=== PATIENT | female | born 1990 | race African-American/Black ===

== ENCOUNTER 2018-03-29 10:01 | Day surgery (SDC) | payer OTHER ==
[2018-03-24 10:26] VITALS: BMI 40.3
--- NOTE | 2018-03-24 13:52 | HP ---
Admitting History and Physical - Primary Care Physician PCP: Kalee Pelayo - Admission Chief Complaint: Left intraductal papilloma with nipple discharge History of Present Illness: 27 yo female presents with complaint of bilateral nipple discharge with some occasional breast pain. An US showed a left retroareolar dilated duct measuring 1.7 cm. Left US core bx was c/w intraductal papilloma. Patient is now presenting for a left breast WE with NL. History Source: Patient Limitations to Obtaining History: No Limitations - Past Medical History ...LMP: 03/16/18 - Smoking History Smoking history: Current some day smoker Have you smoked in the past 12 months: Yes Aproximately how many cigarettes per day: 0 - Alcohol/Substance Use Hx Alcohol Use: Yes (SOCIAL) Home Medications - Allergies Allergies/Adverse Reactions: Allergies Allergy/AdvReac Type Severity Reaction Status Date / Time No Known Drug Allergies Allergy Verified 03/24/18 10:08 - Home Medications Home Medications: Ambulatory Orders Biotin 2,500 mcg PO DAILY 03/24/18 Family Disease History - Family Disease History Family Disease History: CA: Grandparent (paternal GM-breast cancer) Review of Systems - Review of Systems Musculoskeletal: reports: Back Pain Physical Examination Constitutional: Yes: Well Nourished Cardiovascular: Yes: WNL Respiratory: Yes: WNL Breast(s): Yes: Other (No suspicious masses or adenopathy noted bilaterally. Non-bloody yellow thick nipple discharge was noted.) Problem List - Problems (1) Nipple discharge in female Code(s): N64.52 - NIPPLE DISCHARGE (2) Intraductal papilloma of left breast Code(s): D24.2 - BENIGN NEOPLASM OF LEFT BREAST Assessment/Plan Plan: WE of left breast with NL
[2018-03-29] MEDS ORDERED: MIDAZOLAM HCL 2 MG/2 ML SINGLE DOSE VIAL ONE (14:26)
[2018-03-29] MEDS ORDERED: SUCCINYLCHOLINE CHLORIDE 200 MG/10 ML VIAL ONE (14:26)
[2018-03-29] MEDS ORDERED: ONDANSETRON 4 MG/2 ML VIAL ONE (14:26)
[2018-03-29] MEDS ORDERED: PROPOFOL 20 ML ONE ×3 (14:26→15:42)
[2018-03-29] MEDS ORDERED: fentaNYL CITRATE 250 MCG/5 ML VIAL ONE (14:26)
[2018-03-29] MEDS ORDERED: DEXAMETHASONE SOD PHOSPHATE 4 MG/1 ML VIAL ONE (14:26)
[2018-03-29] MEDS ORDERED: ROCURONIUM BROMIDE 50 MG/5 ML VIAL ONE (14:26)
[2018-03-29] MEDS ORDERED: ONDANSETRON 4 MG/2 ML VIAL IVPUSH PRN (14:37)
[2018-03-29] MEDS ORDERED: KETOROLAC TROMETHAMINE 30 MG/1 ML VIAL IVPUSH PRN (14:37)
[2018-03-29] MEDS ORDERED: DEXTROSE 5%-0.45% SALINE 1,000 ML IV SCH (14:45)
[2018-03-29] MEDS ORDERED: LIDOCAINE HCL 1% PRESERVATIVE FREE - 30ML VIAL ONE (14:54)
[2018-03-29] MEDS ORDERED: HYDROmorphone HCL/PF 1 MG/ML AMP ONE (15:22)
[2018-03-29] MEDS ORDERED: BUPIVACAINE HCL/PF 0.25% (2.5MG/ML) 10 ML VIAL IJ ONE (15:26)
[2018-03-29] MEDS ORDERED: BUPIVACAINE HCL/PF 2.5 MG/ML - 30 ML VIAL IJ ONE (15:35)
[2018-03-29] MEDS ORDERED: GUM MASTIC/STORAX/MSAL/ALCOHOL 1 DRP DROPSBTL MC ONE (15:42)
[2018-03-29] MEDS ORDERED: oxyCODONE HCL 5 MG TABLET PO PRN (15:49)
[2018-03-29] MEDS ORDERED: LACTATED RINGERS SOLUTION 1,000 ML IV SCH (16:00)
[2018-03-29 17:19] VITALS: TEMP 98.4
[2018-03-29 17:41] VITALS: BP 113/75; PULSE 85
--- NOTE | 2018-03-29 18:53 | OP ---
DATE OF OPERATION: 03/29/2018 PREOPERATIVE DIAGNOSIS: Left breast papilloma. POSTOPERATIVE DIAGNOSIS: Left breast papilloma. PROCEDURE: Left breast partial mastectomy with mammographic localization. ANESTHESIA: Intubated. ATTENDING: Kalee Pelayo M.D. NURSES SUPERINTENDENT: Dajuan Espinal ESTIMATED BLOOD LOSS: Minimal. COMPLICATIONS: None. PROCEDURE: Patient was made aware of the risks and benefits of the procedure and consented. Preoperatively she went to the radiology suite where a needle was placed next to the indexed lesion. She was then placed in a supine position on the operating room table, and after general anesthesia was induced, the patient was intubated. The operative site was prepped and draped in the usual sterile fashion. A curvilinear periareolar incision was then made using electrocautery. Thick skin flaps were made, and the needle was drawn to the puncture site and the wire through the wound. Tissues specimen submitted with a short suture superior, long suture lateral. Specimen radiographs confirmed the presence of the indexed lesion. The wound was then copiously irrigated with normal saline, hemostasis maintained by electrocautery. The wound was then injected with 0.5% bupivacaine and closed with deep 3-0 Vicryl followed by a running subcuticular 4-0 Monocryl. Steri-Strips and a sterile bandage was then applied, and the patient having tolerated the procedure was sent to the recovery room in excellent condition. Specimen radiographs confirmed the presence of the indexed lesion. KALEE PELAYO M.D. [id number] MTDD
--- NOTE | 2018-04-01 10:41 | PATH ---
Surgical Pathology Report Patient Name: JEOVANY SCOTT Med. Rec. #: [id number] /Age/Gender: 1990 (Age: 27) / F Account: [id number] Location: [facility] Taken: 03/29/2018 Received: 03/29/2018 Reported: 04/01/2018 Physicians: Kalee Pelayo M.D. Specimen(s) Received LEFT BREAST WIDE EXCISION Clinical History Left breast papilloma Final Diagnosis BREAST, LEFT, WIDE EXCISION: BENIGN BREAST TISSUE SHOWING FEW ECTATIC DUCTS AND FOCAL USUAL DUCTAL HYPERPLASIA (UDH). NO RESIDUAL PAPILLOMA IS IDENTIFIED. PRIOR BIOPSY SITE CHANGES ARE PRESENT. Comment: See also prior slide review case [id number] (outside institution case # [id number]). Electronically Signed Diann Massey M.D. Gross Description Received in formalin, labeled "left breast wide excision," is a 3.5 x 2.4 x 1.4 cm. flores-yellow, irregular, portion of fibroadipose tissue with a needle localization wire present. There is a short suture marking the superior aspect and a long suture marking the lateral aspect, per the surgeon. There is no skin present. The specimen is inked as follows: superior and lateral blue; inferior green; medial yellow; anterior red; deep black. The specimen is serially sectioned from medial to lateral. Sectioning reveals abundant dense white fibrous tissue. No definitive mass is identified. There is a small focus of hemorrhage, possibly consistent with a previous biopsy site. The specimen is entirely and sequentially submitted in 7 cassettes with the medial margin in cassette 1, the lateral margin in cassette 7 and the possible previous biopsy site in cassette 4. Time to formalin fixation: 10 minutes Total formalin fixation time: Approximately 26 hours. DL/03/30/2018 saudi03/30/2018
== END 2018-03-29 18:35 | disposition home or self-care (01) ==
LOC: FASU 10:01
PROVIDERS: ATTEND Surgery Surgical Oncology
PROC: 0HBU0ZZ Excision of Left Breast, Open Approach (ICD-10-PCS; principal; 2018-03-29 15:26)
DX: D24.2 Benign neoplasm of left breast (principal); N60.82 Other benign mammary dysplasias of left breast; F17.210 Nicotine dependence, cigarettes, uncomplicated
CPT/HCPCS: 19281; 19301; 84703; 88307-TC; 94760

== ENCOUNTER → 2018-12-09 | Day surgery (SDC) | payer OTHER ==
--- NOTE | 2018-12-12 11:57 | OP ---
DATE OF OPERATION: 12/09/2018 PREOPERATIVE DIAGNOSIS: Left breast mass, 12 o'clock, retroareolar. POSTOPERATIVE DIAGNOSIS: Left breast mass, 12 o'clock, retroareolar. PROCEDURE: Left ultrasound-guided core biopsy and clip placement. ANESTHESIA: Local. ATTENDING SURGEON: Kalee Pelayo MD ESTIMATED BLOOD LOSS: Minimal. COMPLICATIONS: None. PROCEDURE: The patient was made aware of the risks and benefits of the procedure and consented. She was placed in a supine position. Under sterile conditions, with 1% lidocaine for local anesthesia, a small je was made in the skin. Using a 13-gauge suction biopsy device under ultrasound guidance, multiple cores were obtained and submitted to Pathology. Likewise under ultrasound guidance, a bowtie clip was placed into the biopsy region. Well tolerated by patient. Steri-Strip and sterile bandage was applied. Will contact her with the results. KALEE PELAYO M.D. [id number]
== END | disposition home or self-care (01) ==
LOC: FRADUS-SUR 13:00
PROVIDERS: ATTEND Surgery Surgical Oncology
PROC: 0HBU3ZX Excision of Left Breast, Percutaneous Approach, Diagnostic (ICD-10-PCS; principal; 2018-12-09)
DX: D24.2 Benign neoplasm of left breast (principal); N63.20 Unspecified lump in the left breast, unspecified quadrant
CPT/HCPCS: 19083; 87899; 88305-TC; A4648